=== PATIENT | female | born 1960 | race Caucasian/White ===

== ENCOUNTER 2018-08-12 17:49 | Inpatient (IN) ==
--- NOTE | 2018-08-12 20:40 | Internal Med History&Physical ---
<StephanieEneida - Last Filed: 08/13/18 01:05> Date of Encounter: 08/13/18 Internal Medicine - H&P: HPI History of present illness: Ms. Yao is a 58 year old female Internal Medicine - H&P: Meds Guaifenesin [Guaifenesin ER] 600 mg PO Q12H 03/09/16 [History] Acyclovir [Zovirax] 400 mg PO DAILY 03/16/17 [History] Bethanechol [Urecholine] 25 mg PO TID 03/16/17 [History] DiphenhydraMINE [Benadryl] 25 mg PO BID 03/16/17 [History] Estrogens, Conjugated [Premarin] 0.625 mg PO DAILY 03/16/17 [History] Ipratropium [Atrovent Inhaler] 2 puff IH QID 03/16/17 [History] Loratadine [Allergy Relief] 10 mg PO DAILY 03/16/17 [History] SUMAtriptan Succinate [Imitrex] 100 mg PO DAILY PRN 03/16/17 [History] Albuterol Sulfate [Albuterol Inhaler] 2 puff IH Q4HR PRN #1 [email or web address] 06/15/17 [Rx] Aspirin [Lo-Dose Aspirin EC] 81 mg PO DAILY 06/15/17 [History] Gabapentin [Neurontin] 800 mg PO TID 06/15/17 [History] Citalopram Hydrobromide [Citalopram HBr] 20 mg PO DAILY 03/16/18 [History] Ergocalciferol (VITAMIN D2) [Vitamin D2] 50,000 unit PO PER PKG DI 03/16/18 [ History] Mupirocin [Bactroban Oint] 1 appl TP BID #1 tube 03/16/18 [Rx] clonazePAM [Clonazepam] 1 mg PO TID 03/16/18 [History] Buprenorphine [Butrans] 15 mcg TD QWEEK 08/12/18 [History] 3 Allergy/AdvReac Type Severity Reaction Status Date / Time Penicillins Allergy Unknown See Verified 03/16/18 15:37 Comments azithromycin [From Zithromax] Allergy See Verified 03/16/18 15:37 Comments capsaicin [From Capzasin] Allergy See Verified 03/16/18 15:37 Comments codeine Allergy See Verified 03/16/18 15:37 Comments hydrocodone Allergy See Verified 03/16/18 15:37 Comments latex Allergy See Verified 03/16/18 15:37 Comments levofloxacin [From Levaquin] Allergy See Verified 03/16/18 15:37 Comments menthol [From Capzasin] Allergy See Verified 03/16/18 15:37 Comments morphine Allergy See Verified 03/16/18 15:37 Comments quetiapine Allergy See Verified 03/16/18 15:37 Comments sertraline Allergy See Verified 06/15/17 20:18 Comments sodium chloride Allergy See Verified 06/15/17 20:18 Comments venom-honey bee Allergy See Verified 06/15/17 20:18 [bee venom (honey bee)] Comments All Systems PM: A 10-system review of systems was performed and is negative for pertinent findings except as documented above in the HPI. - Constitutional Vitals: Temp Pulse Resp BP Pulse Ox 99.5 F 85 16 111/73 100 08/12/18 20:07 08/13/18 00:00 08/13/18 00:00 08/13/18 00:00 08/13/18 00:00 Internal Med - H&P Results - Labs CBC & Chem 7: 08/12/18 21:41 Labs: BMP 08/12/18 21:41 Sodium 133 L Potassium 4.4 Chloride 102 Carbon Dioxide 24 BUN 60 H Creatinine 1.18 Glucose 115 H Calcium 7.4 L Liver Function 08/12/18 Range/Units 21:41 Total Bilirubin 1.8 H (0.3-1.0) mg/dL AST 430 H (13-39) Units/L ALT 447 H (7-52) Units/L Alkaline Phosphatase 97 (34-104) Units/L Albumin 2.6 L (3.5-5.7) g/dL - Time Spent With Patient Total time spent is greater than 50% in coordination of care (as documented) at patient's floor/unit and/or counseling patient: - Attending Attestation Patient seen on 08/12/18. 58 year old woman with a history of COPD and heart failure who was transferred here after presenting to outside center in respiratory distress, found by EMS to be cyanotic around the lips, hypoxic, confused with O2 sats of 70% with no home O2 on. The patient has had increasing shortness of breath and difficulty breathing over the past couple of days. She is brought to our ICU on Bipap. She reports feeling much better. She denies fever, chest pain and chills. PE remarkable for a petite woman sitting in bed in NAD with reduced breath sounds and air entry bilaterally, normal s1/s2 and no peripheral edema. Labs remarkable for Na 133, Troponin 0.05 and elevated LFTs. D-dimer almost 17K. Will admit as acute hypoxic respiratory failure. Rule out PE with CTA given the high D-dimer. Continue Bipap, nebulizer therapy and empiric antibiotics. May benefit from diuresis as well given the high BNP. Echo should be checked. Trend LFTs. <Anthony Forte - Last Filed: 08/13/18 05:45> Date of Encounter: 08/13/18 Time of Encounter: 20:40 Internal Medicine - H&P: HPI Chief complaint: SOB Admitted From: Intrahospital Transfer ([facility]) History of present illness: Ms. Yao is a 58 year old female with a past medical history of COPD, previous right lung surgery, rheumatoid arthritis, Reynauds, lower extremity venous insufficiency, and current tobacco dependence who was transferred from [facility] ER secondary to SOB for the past 1 week. Patient was placed on BiPAP noted to be in new onset A. fib with RVR. She denies previous history of irregular heart rhythm and is on Aspirin and Toprol-XL. Patient is awake and conversant. She remains mildly confused but is able to answer questions appropriately. She reports associated fever, chills, productive cough, and chest tightness. Patient denies nausea, vomiting, diarrhea, constipation, dysuria, hematuria, leg swelling, or recent immobilization. Past Med Surg Social Fam HX - Past Medical History Medical history: arthritis, COPD, GERD, hypertension, migraine, RA, other Additional medical history: "heart problems" Psychiatric history: anxiety, depression - Past Surgical History Surgical History: cholecystectomy, herniorrhaphy, hysterectomy, other Additional surgical history: skin cancer, Rt lung surgery - Social History Smoking Status: Current every day smoker Smokeless Tobacco Status: No Alcohol use: none Drug use: none - Family History Father Hx Family Cardiac Disorders: Yes (Hypertension) Hx Family Endocrine Disorder: Yes (DM) Mother Living Status: Hx Family Cancer: Yes (Breast) Hx Family Endocrine Disorder: Yes (Thyroid) All Systems PM: A 10-system review of systems was performed and is negative for pertinent findings except as documented above in the HPI. - Constitutional Constitutional: chills, fatigue, fever(s), lethargy, no weight gain, no weight loss - EENT Eyes: no blurry vision, no change in vision Nose, mouth and throat: dry mouth, no sore throat - Cardiovascular Cardiovascular ROS IM: dyspnea, dyspnea on exertion, palpitations, no chest pain - Respiratory Respiratory: cough, dyspnea, dyspnea on exertion, wheezing, chest congestion, no excessive phlegm production, no change in phlegm color - Gastrointestinal Gastrointestinal: abdominal pain (Suprapubic), no constipation, no diarrhea, no nausea, no vomiting - Genitourinary Genitourinary: no dysuria, no urinary frequency, no urinary urgency - Musculoskeletal Musculoskeletal ROS IM: myalgias (Left upper extremity), tingling, no joint swelling, no limited range of motion, no numbness - Integumentary Integumentary IM: erythema (Ecchymosis status post venipuncture), no rash - Neurological Neurological ROS: tingling, no headache(s), no numbness, no weakness - Psychiatric Psychiatric: no anxiety, no depression - Hematologic/Lymphatic Hematologic/Lymphatic: no easy bleeding, no easy bruising - Allergic/Immunologic Allergic/Immunologic: wheezing - Constitutional Vitals: Temp Pulse Resp BP Pulse Ox 99.5 F 82 16 92/65 100 08/12/18 20:07 08/12/18 20:07 08/12/18 20:07 08/12/18 20:07 08/12/18 20:07 General appearance: Present: cachectic, A&O X 3, pleasant, answers questions appropriately Exam: Cachectic, mildly confused, no acute distress wearing BiPAP, appears older than stated age - Head Head exam: Present: atraumatic, normocephalic - Eye Eye exam: Present: EOMI, conjuntiva pink, sclera anicteric - ENT ENT exam: Present: mucous membranes dry, normal oropharynx - Neck Neck exam general surgery: Present: supple, trachea midline. Absent: lymphadenopathy - Respiratory Respiratory exam: Present: decreased breath sounds, wheezes (Expiratory). Absent: accessory muscle use, rales, respiratory distress, rhonchi Additional comments: Wearing BiPAP, previous right sided chest incision noted - Cardiovascular Cardiovascular exam: Present: RRR, +S1, +S2. Absent: diastolic murmur, gallop, rubs, systolic murmur - GI/Abdominal GI/Abdominal exam: Present: normal bowel sounds, soft, tenderness (Suprapubic), no peritoneal signs. Absent: distended - Extremities Exam Extremities exam: Present: normal capillary refill, warm, radial pulses palpable and symmetrical. Absent: calf tenderness, cyanotic, pedal edema - Back Exam Back exam: Present: normal inspection. Absent: paraspinal tenderness, tenderness - Neurological Exam Neurological exam: Present: altered, CN II-XII intact, no focal deficits. Absent: pronater drift, facial droop, speech deficit - Psychiatric Psychiatric exam: Present: normal affect, normal mood - Skin Skin exam: Present: dry, intact. Absent: normal color (Ecchymosis left AC/ bicep region, mild tenderness status post IV contrast extravasation) Internal Med - H&P Results - Labs CBC & Chem 7: 08/13/18 03:10 08/13/18 03:10 - ABG Interpretation ABG results: 08/12/19 16:45 pH 7.35, PCO2 46, PO2 87, HCO3 26, O2 sat 96% Interpretation: normal - Pulse Oximetry Interpretation Digit-Finger O2 Sat by Pulse Oximetry: 95 Actions taken: placed on BiPAP - EKG Data -: EKG Interpreted by Myself EKG shows normal: sinus rhythm (75 bpm, flipped T waves) - Assessment and plan (1) Acute on chronic respiratory failure with hypoxia and hypercapnia Current Visit: Yes Status: Acute Assessment and plan: Patient presented to [facility] emergency room in respiratory distress after found by EMS to be confused, cyanotic around the lips, hypoxic with O2 sats of 70% She denies home O2 use ABG revealed pH 7.35, PCO2 46, PO2 87, HCO3 26, O2 sat 96% Repeat ABG revealed pH 7.3, PCO2 51, PO2 80, HCO3 27, O2 sat 95% Continue BiPAP Continue bronchodilators May need to qualify for home oxygen prior to hospital discharge (2) Acute encephalopathy Current Visit: Yes Status: Acute Assessment and plan: Acute encephalopathy possibly due to hypercapnia, continue BiPAP Sitter ordered Continue close monitoring (3) Sepsis Current Visit: Yes Status: Resolved Assessment and plan: Patient met sepsis criteria with tachycardia heart rate 154, aspirin rate 24, temp 99.9F, and CAP as likely source of infection Initial lactic acid level 2.3, repeat level 1.5 Patient started on empiric antibiotics De-escalate antibiotics based on culture results Qualifiers: Sepsis type: sepsis due to unspecified organism Qualified Code(s): A41.9 - Sepsis, unspecified organism (4) Community acquired pneumonia Current Visit: Yes Status: Acute Assessment and plan: Patient presented with 99.9F, productive cough, increased oxygen requirements, and acute respiratory distress Patient has multiple drug allergies Continue empiric cefepime and vancomycin (day 1) Blood cultures collected at [facility], results pending MRSA Nasal screen pending Urine Legionella and strep pneumo antigens pending De- escalate antibiotics based on culture results Continue bronchodilators Encourage incentive spirometry Qualifiers: Laterality: unspecified laterality Qualified Code(s): J18.9 - Pneumonia, unspecified organism (5) COPD exacerbation Current Visit: Yes Status: Acute Assessment and plan: Acute exacerbation of COPD Continue antibiotics, IV steroids, and bronchodilators (6) New onset a-fib Current Visit: Yes Status: Acute Assessment and plan: Patient was placed on BiPAP noted to be in new onset A. fib RVR at [facility]. She denies previous history of irregular heart rhythm Patient is on Aspirin 81 mg daily and Toprol XL 12.5 mg daily Repeat EKG reveals normal sinus rhythm TSH level 0.469 CHADS-VASc Score 4 (female, hypertension, CHF history, and vascular disease history) Will need to discuss anticoagulation options to decrease her risk of stroke Consider cardiology evaluation for further recommendations (7) Diastolic CHF, acute on chronic Current Visit: Yes Status: Acute Assessment and plan: Echo 03/07/18 revealed LVEF 60-65%, normal LV chamber signs, mild LV diastolic dysfunction, atypical septal motion, mild tricuspid regurgitation, severe pulmonary hypertension, estimated RVSP is 65-70 mmHg Elevated BNP 2272, dyspnea on exertion, paroxysmal nocturnal dyspnea CTA chest revealed bilateral pleural effusions Resume home beta teodoro, consider adding TAMIE inhibitor once blood pressure improved Consider starting diuresis if blood pressure improves (8) Elevated d-dimer Current Visit: Yes Status: Acute Assessment and plan: Elevated d-dimer CTA revealed negative for PE Bilateral lower extremity ultrasound pending to rule out DVT (9) Elevated troponin Current Visit: Yes Status: Acute Assessment and plan: Initial troponin 0.05, repeat troponin 0.04, serotonin pending Patient initially had appointment for outpatient stress test on 07/13/18 Consider cardiology consult/ evaluation if troponin continues to rise (10) Elevated LFTs Current Visit: Yes Status: Acute Assessment and plan: Trend LFTs (11) Hypertension Current Visit: Yes Status: Chronic Assessment and plan: Continue home meds Qualifiers: Hypertension type: essential hypertension Qualified Code(s): I10 - Essential (primary) hypertension (12) Rheumatoid arthritis Current Visit: Yes Status: Chronic Assessment and plan: Outpatient monitoring Qualifiers: Rheumatoid arthritis location: unspecified site Rheumatoid factor presence : unspecified presence Qualified Code(s): M06.9 - Rheumatoid arthritis, unspecified (13) Raynaud disease Current Visit: Yes Status: Chronic Assessment and plan: Outpatient monitoring Qualifiers: Raynaud?s-associated gangrene presence: without gangrene Qualified Code(s) : I73.00 - Raynaud's syndrome without gangrene (14) Tobacco dependence Current Visit: Yes Status: Chronic Assessment and plan: Tobacco cessation discussed (15) Injection site extravasation Current Visit: Yes Status: Acute Assessment and plan: She had IV contrast extravasation into left upper extremity Hyaluronidase ordered Qualifiers: Encounter type: initial encounter Qualified Code(s): T80.818A - Extravasation of other vesicant agent, initial encounter (16) DVT prophylaxis Current Visit: Yes Status: Acute Assessment and plan: Heparin - Time Spent With Patient Total time spent is greater than 50% in coordination of care (as documented) at patient's floor/unit and/or counseling patient:
[2018-08-12] MEDS ORDERED: Ondansetron 4 MG/2 ML VIAL IVP PRN (20:42)
[2018-08-12] MEDS ORDERED: Isovue-370 500 ML INFUS..BTL IV ONE (20:42)
[2018-08-12] MEDS ORDERED: Naloxone 0.4 MG/ML INJ IVP PRN (20:42)
[2018-08-12] MEDS ORDERED: Acetaminophen 325 MG TABLET PO PRN (20:42)
[2018-08-12] MEDS ORDERED: CEFTRIAXONE IVPB SCH (21:00)
[2018-08-12] MEDS ORDERED: SODIUM CHLORIDE 0.9% IVPB SCH (21:00)
[2018-08-12] MEDS: *HR* Heparin 5,000 UNIT/ML VIAL SQ SCH (21:35)
[2018-08-12] MEDS: Cefepime HCl 1,000 MG in Water for inj. (sterile) 20 ML 10 ML IVPB SCH (21:35)
[2018-08-12 22:11] LABS: Albumin 2.6 g/dL (3.5-5.7); Albumin/Globulin Ratio 0.8 (1.1-2.2); Bilirubin,Total 1.8 mg/dL (0.3-1.0); Calcium 7.4 mg/dL (8.6-10.3); Globulin 3.2 g/dL (2.4-3.5); Magnesium 2.1 mg/dL (1.6-2.6); Phosphorous 2.9 mg/dL (2.7-4.5); Potassium 4.4 mEq/L (3.5-5.1); Total Protein 5.8 g/dL (6.4-8.9)
[2018-08-13] MEDS ORDERED: SODIUM CHLORIDE 0.9% IVPB SCH
[2018-08-13] MEDS ORDERED: VANCOMYCIN IVPB SCH
[2018-08-13] MEDS ORDERED: methylPREDNISolone 125 MG/2 ML VIAL IVP ONE (01:24)
[2018-08-13] MEDS: Ipratropium/Albuterol Neb 3 ML IH SCH ×6 (03:18→23:36)
[2018-08-13 03:25] LABS: Basophils % 0.1 %
[2018-08-13 03:27] LABS: Hematocrit 34.5 % (35.3-44.9); Hemoglobin 11.1 g/dL (11.5-15.4); Immature Granulocytes % 0.2 % (0-4); Immature Platelets 7.2 % (1.1-6.1); Lymphocytes # 0.8 K/mcL (0.6-4.6); Lymphocytes % 8.6 %; Mean Corpuscular HGB Conc 32.2 g/dL (31.6-35.5); Mean Corpuscular Hemoglobin 28.5 pg (28.0-33.3); Mean Corpuscular Volume 88.5 fL (83.0-100.0); Mean Platelet Volume 10.4 fL (9.4-12.4); Monocytes # 1.1 K/mcL (0.0-1.3); Monocytes % 11.7 %; Neutrophils # 7.2 K/mcL (1.6-8.9); Nucleated Red Blood Cells 0.4 /100 WBC (0); Platelet Count 105 K/mcL (140-400); Red Cell Distribution Width 16.4 % (11.5-14.5); Segmented Neutrophils % 79.4 %
[2018-08-13 03:32] LABS: INR 2.3; Prothrombin Time 25.8 Seconds (9.4-12.1)
[2018-08-13 03:39] LABS: Alanine Aminotransferase 383 Units/L (7-52); Albumin 2.5 g/dL (3.5-5.7); Albumin/Globulin Ratio 0.9 (1.1-2.2); Alkaline Phosphatase 84 Units/L (34-104); Aspartate Amino Transferase 330 Units/L (13-39); BUN/Creatinine Ratio 56 (6-26); Bilirubin,Total 1.8 mg/dL (0.3-1.0); Blood Urea Nitrogen 48 mg/dL (8-23); Calcium 7.3 mg/dL (8.6-10.3); Carbon Dioxide 26 mEq/L (23-29); Chloride 100 mEq/L (98-107); Globulin 2.9 g/dL (2.4-3.5); Glucose 122 mg/dL (70-105); Osmolality,Calculated 284 (280-300); Potassium 3.7 mEq/L (3.5-5.1); Sodium 130 mEq/L (136-145); Total Protein 5.4 g/dL (6.4-8.9); eGFR For Non-African Americans > 60 (> 60)
[2018-08-13 04:28] LABS: Bilirubin,Urine Negative (Negative); Blood,Urine Negative (Negative); Clarity,Urine Clear (Clear); Color,Urine Yellow (Yellow); Glucose,Urine (UA) Normal (Normal); Ketones,Urine Negative (Negative); Leukocyte Esterase,Urine Negative (Negative); Nitrite,Urine Negative (Negative); PH,Urine 5.5 pH Units (5.0-8.0); Protein,Urine Negative (Neg-Trace); Specific Gravity,Urine > 1.030 (1.010-1.025); Urobilinogen,Urine Normal (Normal)
[2018-08-13] MEDS: clonazePAM 1 MG TABLET PO SCH ×4 (04:57→20:48)
[2018-08-13 05:01] LABS: ABG Base Excess 1 mEq/L (-2 to 3); ABG HCO3 27 mEq/L (21-27); ABG Oxygen Saturation 95 % (95-98); ABG PCO2 51 mmHg (35-45); ABG PH 7.33 pH Units (7.32-7.45); ABG PO2 80 mmHg (85-104); ABG TCO2 29 mEq/L (20-26); Blood Gas Modality NIV; Blood Gas Respiration Rate 13; Blood Gas VT 848 cc
[2018-08-13] MEDS: Cefepime HCl 1,000 MG in Water for inj. (sterile) 20 ML 10 ML IVPB SCH ×2 (05:07→17:50)
[2018-08-13] MEDS: *HR* Heparin 5,000 UNIT/ML VIAL SQ SCH ×3 (05:07→20:40)
[2018-08-13] MEDS ORDERED: Haloperidol Lactate 5 MG/ML VIAL IVP ONE (06:18)
[2018-08-13] MEDS ORDERED: MethylPREDNISolone 40 MG/ML VIAL IVP SCH (08:00)
--- NOTE | 2018-08-13 08:41 | Internal Med Progress Note ---
Hospitalist Progress Note - Encounter Date of Encounter: 08/13/18 Time of Encounter: 08:41 - Subjective Interval History: Ms Yao is currently admitted for acute on chronic hypoxic resp failure. She remains moderate to high risk due to potential for worsening clinical and respiratory status. Ms Yao is currently on bipap. She is arousable and says she wants to leave. She has been taking her bipap off and when she does she becomes more somnolent and retains CO2. Denies CP. No GI issues. Her liver function remains elevated - transaminitis and INR. - Exam Vitals: Temp Pulse Resp BP Pulse Ox 97.6 F 69 13 86/55 98 08/13/18 07:35 08/13/18 07:35 08/13/18 08:23 08/13/18 08:23 08/13/18 08:23 Exam: General: Alert. On bipap. Seems comfortable. Skin: Normal color, no rash, no lesions. Some ecchymoses noted. H: Normocephalic. EENT: EOMI, pupils reactive. Mucus membranes dry. No lesion seen though bipap mask in place. Cardiovascular: Normal S1 & S2, no rubs, murmurs or gallops. No JVD. Pulse regular and not tachy. Lungs: Diminished breath sounds with some end exp wheeze. No rales or rhonchi. Abdomen: Soft, non-tender, no rigidity. Normal bowel sounds. Extremities: No deformity, no edema or tenderness, no joint swelling or clubbing. Neurological: Alert. Moves all extremities equally. Pulses: Carotid and radial pulses normal +2. Rest of the physical exam is non contributory - Assessment and Plan (1) Acute on chronic respiratory failure with hypoxia and hypercapnia Current Visit: Yes Status: Acute Assessment and Plan: Pt presented to ED in acute hypoxic resp failure with saturation in 70s. Has become acidotic and hypercapnic. Continue bipap at this time. NPO. Oxygen supplementation. Will transfer out of ICU to . Continue aerosols, steroids, abx. (2) COPD exacerbation Current Visit: Yes Status: Acute Assessment and Plan: Currently in acute exacerbation. Continue steroids, oxygen, abx (3) Diastolic CHF, acute on chronic Current Visit: Yes Status: Acute Assessment and Plan: Has hx of diastolic heart failure. Holding on diuresis for now due to blood pressure. Holding fluids at this time. (4) Acute metabolic encephalopathy Current Visit: Yes Status: Acute Assessment and Plan: Appears to be related to illness, liver function, respiratory failure. Has sitter as she has been pulling off her bipap. (5) Community acquired pneumonia Current Visit: Yes Status: Acute Assessment and Plan: CTA showed bibasilar infiltrates. Currently on cefipime and vancomycin. MRSA swab negative - will d/c vanc. Continue cefipime. Blood cx pending. (6) Transaminitis Current Visit: Yes Status: Acute Assessment and Plan: Pt has elevated transaminases and INR. Most likely due to hypotension prior to admission. Slightly better today. Will give vit K for elevated INR. Recheck tomorrow. (7) New onset a-fib Current Visit: Yes Status: Acute Assessment and Plan: Had episode of parox a fib in [place]. Currently in sinus rhythm. CHADS-VASc Score 4 (female, hypertension, CHF history, and vascular disease history) Will need to discuss anticoagulation options to decrease her risk of stroke Review any prior echo results. (8) Hypertension Current Visit: Yes Status: Chronic Assessment and Plan: Blood pressure has been on low side today. Holding any meds and diuresis for now. (9) DVT prophylaxis Current Visit: Yes Status: Acute Assessment and Plan: Heparin subqu (10) Elevated troponin Current Visit: Yes Status: Acute Assessment and Plan: Initial troponin low but now 0.14 Recheck another one later today. (11) Elevated d-dimer Current Visit: Yes Status: Acute Assessment and Plan: Elevated d-dimer CTA revealed negative for PE Pt refuses venous study (12) Injection site extravasation Current Visit: Yes Status: Acute Assessment and Plan: She had IV contrast extravasation into left upper extremity Hyaluronidase ordered Stable at this time. (13) Sepsis Current Visit: Yes Status: Resolved Assessment and Plan: Heartrate has improved. Sepsis appears to have resolved. (14) Raynaud disease Current Visit: Yes Status: Chronic Assessment and Plan: Outpatient monitoring (15) Rheumatoid arthritis Current Visit: Yes Status: Chronic (16) Tobacco abuse Current Visit: Yes Status: Chronic Assessment and Plan: Cessation counselling - Time Spent with Patient Total time spent is greater than 50% in coordination of care (as documented) at patient's floor/unit and/or counseling patient: Internal Medicine: Result - Labs CBC & Chem 7: 08/13/18 03:10 08/13/18 03:10 Labs: Short CBC 08/13/18 Range/Units 03:10 WBC 9.1 (4.3-11.1) K/mcL Hgb 11.1 L (11.5-15.4) g/dL Hct 34.5 L (35.3-44.9) % Plt Count 105 L (140-400) K/mcL Neutrophils # 7.2 (1.6-8.9) K/mcL BMP 08/12/18 08/13/18 21:41 03:10 Sodium 133 L 130 L Potassium 4.4 3.7 Chloride 102 100 Carbon Dioxide 24 26 BUN 60 H 48 H Creatinine 1.18 0.85 Glucose 115 H 122 H Calcium 7.4 L 7.3 L Cardiac Enzymes 08/13/18 Range/Units 03:10 Troponin I 0.04 H* (< 0.04) ng/mL Liver Function 08/12/18 08/13/18 Range/Units 21:41 03:10 Total Bilirubin 1.8 H 1.8 H (0.3-1.0) mg/dL AST 430 H 330 H (13-39) Units/L ALT 447 H 383 H (7-52) Units/L Alkaline Phosphatase 97 84 (34-104) Units/L Albumin 2.6 L 2.5 L (3.5-5.7) g/dL Urine 08/13/18 Range/Units 01:21 Urine Color Yellow (Yellow) Urine Clarity Clear (Clear) Urine pH 5.5 (5.0-8.0) pH Units Ur Specific [place] > 1.030 H (1.010-1.025) Urine Protein Negative (Neg-Trace) mg/dL Urine Glucose (UA) Normal (Normal) mg/dL - ABG Interpretation ABG results: ABG ABG pH 7.33 pH Units (7.32-7.45) 08/13/18 04:58 ABG pCO2 51 mmHg (35-45) H 08/13/18 04:58 ABG pO2 80 mmHg (85-104) L 08/13/18 04:58 ABG O2 Saturation 95 % (95-98) 08/13/18 04:58 PT/INR, D-dimer PT 25.8 Seconds (9.4-12.1) H 08/13/18 03:10 - Impressions Impressions Chest CTA 08/12/18 20:42 IMPRESSION: No PE detected. Bibasilar pulmonary infiltrates and trace bilateral pleural effusions. Pulmonary emphysema. Infiltrated contrast in the left upper extremity. D/ / Be Roland MD / Be Roland MD Interpreting Provider: Be Roland MD Consult Discharge Plan - Plan Referrals: Les Merchant DO [Primary Care Provider] - (5) Community acquired pneumonia Qualifiers: Laterality: unspecified laterality Qualified Code(s): J18.9 - Pneumonia, unspecified organism (8) Hypertension Qualifiers: Hypertension type: essential hypertension Qualified Code(s): I10 - Essential (primary) hypertension (12) Injection site extravasation Qualifiers: Encounter type: subsequent encounter Qualified Code(s): T80.818D - Extravasation of other vesicant agent, subsequent encounter (13) Sepsis Qualifiers: Sepsis type: sepsis due to unspecified organism Qualified Code(s): A41.9 - Sepsis, unspecified organism (14) Raynaud disease Qualifiers: Raynaud?s-associated gangrene presence: without gangrene Qualified Code(s): I73.00 - Raynaud's syndrome without gangrene (15) Rheumatoid arthritis Qualifiers: Rheumatoid arthritis location: unspecified site Rheumatoid factor presence: unspecified presence Qualified Code(s): M06.9 - Rheumatoid arthritis, unspecified
[2018-08-13] MEDS ORDERED: Ringers Solution, Lactated 1,000 ML IVC SCH ×2 (08:45→09:46)
[2018-08-13] MEDS ORDERED: Aspirin Enteric Coated 81 MG Tablet PO SCH (09:00)
[2018-08-13] MEDS ORDERED: Pantoprazole 40 MG VIAL IVP SCH (09:00)
[2018-08-13] MEDS ORDERED: Metoprolol XL (24 HR) Succ 25 MG TAB.ER.24H PO SCH (09:00)
[2018-08-13] MEDS ORDERED: Naloxone 0.4 MG/ML INJ IVP PRN (09:46)
[2018-08-13] MEDS ORDERED: Ondansetron 4 MG/2 ML VIAL IVP PRN (09:46)
[2018-08-13] MEDS ORDERED: Acetaminophen 325 MG TABLET PO PRN (09:46)
[2018-08-13] MEDS ORDERED: BUPRENORPHINE 15 MCG TP SCH (17:00)
[2018-08-13] MEDS: MethylPREDNISolone 40 MG/ML VIAL IVP SCH (17:50)
[2018-08-13 17:53] LABS: VBG HCO3 30 mEq/L (21-27); VBG PCO2 64 mmHg (41-51); VBG PH 7.28 pH Units (7.32-7.42); VBG PO2 58 mmHg (25-50)
[2018-08-13] MEDS: Gabapentin 400 MG CAPSULE PO SCH (20:48)
[2018-08-14] MEDS: MethylPREDNISolone 40 MG/ML VIAL IVP SCH ×3 (00:47→23:58)
[2018-08-14] MEDS: Ipratropium/Albuterol Neb 3 ML IH SCH ×6 (03:44→23:01)
[2018-08-14 03:50] LABS: Red Cell Distribution Width 16.3 % (11.5-14.5)
[2018-08-14 03:52] LABS: Hematocrit 35.8 % (35.3-44.9); Hemoglobin 11.4 g/dL (11.5-15.4); Mean Corpuscular HGB Conc 31.8 g/dL (31.6-35.5); Mean Corpuscular Hemoglobin 28.1 pg (28.0-33.3); Mean Corpuscular Volume 88.2 fL (83.0-100.0); Red Blood Count 4.06 M/mcL (3.82-4.97)
[2018-08-14 04:09] LABS: Alanine Aminotransferase 309 Units/L (7-52); Albumin 2.4 g/dL (3.5-5.7); Albumin/Globulin Ratio 0.8 (1.1-2.2); Alkaline Phosphatase 83 Units/L (34-104); Aspartate Amino Transferase 207 Units/L (13-39); BUN/Creatinine Ratio 42 (6-26); Bilirubin,Total 1.2 mg/dL (0.3-1.0); Blood Urea Nitrogen 25 mg/dL (8-23); Calcium 8.1 mg/dL (8.6-10.3); Carbon Dioxide 27 mEq/L (23-29); Chloride 100 mEq/L (98-107); Globulin 2.9 g/dL (2.4-3.5); Glucose 125 mg/dL (70-105); Osmolality,Calculated 280 (280-300); Phosphorous 2.1 mg/dL (2.7-4.5); Potassium 3.8 mEq/L (3.5-5.1); Sodium 132 mEq/L (136-145); Total Protein 5.3 g/dL (6.4-8.9); eGFR For Non-African Americans > 60 (> 60)
[2018-08-14] MEDS: *HR* Heparin 5,000 UNIT/ML VIAL SQ SCH (04:23)
[2018-08-14] MEDS: Cefepime HCl 1,000 MG in Water for inj. (sterile) 20 ML 10 ML IVPB SCH ×3 (04:32→18:10)
[2018-08-14 08:29] LABS: ABG Base Excess 3 mEq/L (-2 to 3); ABG HCO3 29 mEq/L (21-27); ABG Oxygen Saturation 96 % (95-98); ABG PCO2 49 mmHg (35-45); ABG PH 7.38 pH Units (7.32-7.45); ABG PO2 86 mmHg (85-104); ABG TCO2 30 mEq/L (20-26); Blood Gas PEEP 6 cm H2O; Blood Gas Pressure Support 12 cm H2O; Blood Gas Respiration Rate 12
[2018-08-14] MEDS ORDERED: Aminoglycoside Consult 1 EACH MC ONE (08:30)
--- NOTE | 2018-08-14 08:39 | Internal Med Progress Note ---
Hospitalist Progress Note - Encounter Date of Encounter: 08/14/18 Time of Encounter: 08:36 - Subjective Interval History: Ms Yao is currently admitted for acute on chronic hypoxic resp failure. She remains moderate to high risk due to potential for worsening clinical and respiratory status. Ms Yao remains on bipap. She seems to be more alert and oriented this AM. She was taken off bipap and went into a fib with RVR. When put back on bipap she returned to R as she is now. Denies CP. No abd pain. No fever or chills. No GI issues. - Exam Vitals: Temp Pulse Resp BP Pulse Ox 97.2 F L 63 17 102/66 100 08/14/18 07:32 08/14/18 07:32 08/14/18 07:33 08/14/18 07:32 08/14/18 07:33 Exam: General: Alert. Appears more oriented at this time. Comfortable in bed. Skin: Normal color, no rash, no lesions. H: Normocephalic. EENT: EOMI, pupils equal. Mucus membranes dry. Cardiovascular: Normal S1 & S2, no rubs, murmurs or gallops. No JVD. Pulse regular. Not tachycardic. Lungs: Diminished breath sounds. No wheeze or rales anteriorly or laterally. Abdomen: Soft, non-tender, no rigidity. Normal bowel sounds. Extremities: No deformity, no edema or tenderness, no joint swelling or clubbing. Neurological: Moves all extremities. Pulses: Carotid and radial pulses normal +2. Rest of the physical exam is non contributory - Assessment and Plan (1) Acute on chronic respiratory failure with hypoxia and hypercapnia Current Visit: Yes Status: Acute Assessment and Plan: Pt presented to ED in acute hypoxic resp failure with saturation in 70s. ABG is better this AM. Will try her off bipap at this time (watching heart rate ). (2) COPD exacerbation Current Visit: Yes Status: Acute Assessment and Plan: Currently in acute exacerbation. Will begin taper of steroids to q12h today. Continue oxygen and abx at this time. (3) Diastolic CHF, acute on chronic Current Visit: Yes Status: Acute Assessment and Plan: Has hx of diastolic heart failure. Diuretic on hold due to blood pressure. Will recheck CXR tomorrow. (4) Thrombocytopenia Current Visit: Yes Status: Acute Assessment and Plan: Doubt HIT but antibody ordered and subqu heparin stopped. (5) Acute metabolic encephalopathy Current Visit: Yes Status: Acute Assessment and Plan: Appears to be related to illness, liver function, respiratory failure. Seems to be doing better today. Continue supportive care. (6) Community acquired pneumonia Current Visit: Yes Status: Acute Assessment and Plan: CTA showed bibasilar infiltrates. Currently on cefipime Cultures are negative at this time. (7) Transaminitis Current Visit: Yes Status: Acute Assessment and Plan: Pt has elevated transaminases and INR. Most likely due to hypotension prior to admission. Continues to slowly improve. (8) Paroxysmal atrial fibrillation Current Visit: Yes Status: Chronic Assessment and Plan: Currently in sinus rhythm. Had rapid a fib when off bipap last night. Monitor for return of tachycardia. Will need to address issue of anticoagulation prior to discharge. (9) Hypertension Current Visit: Yes Status: Chronic Assessment and Plan: Blood pressure has been on low side today. Holding any meds and diuresis for now. (10) Injection site extravasation Current Visit: Yes Status: Acute Assessment and Plan: She had IV contrast extravasation into left upper extremity Hyaluronidase ordered Stable at this time. (11) Raynaud disease Current Visit: Yes Status: Chronic Assessment and Plan: Outpatient monitoring (12) Rheumatoid arthritis Current Visit: Yes Status: Chronic Assessment and Plan: Outpatient monitoring (13) Tobacco abuse Current Visit: Yes Status: Chronic Assessment and Plan: Cessation counselling (14) DVT prophylaxis Current Visit: Yes Status: Acute Assessment and Plan: Now getting SCDs as her platelets have decreased. - Time Spent with Patient Total time spent is greater than 50% in coordination of care (as documented) at patient's floor/unit and/or counseling patient: Internal Medicine: Result - Labs CBC & Chem 7: 08/14/18 03:26 08/14/18 03:26 Labs: Short CBC 08/14/18 Range/Units 03:26 WBC 5.8 (4.3-11.1) K/mcL Hgb 11.4 L (11.5-15.4) g/dL Hct 35.8 (35.3-44.9) % Plt Count 87 L (140-400) K/mcL BMP 08/14/18 03:26 Sodium 132 L Potassium 3.8 Chloride 100 Carbon Dioxide 27 BUN 25 H Creatinine 0.60 Glucose 125 H Calcium 8.1 L Cardiac Enzymes 08/13/18 08/13/18 Range/Units 09:53 16:00 Troponin I 0.16 H* 0.03 (< 0.04) ng/mL Liver Function 08/14/18 Range/Units 03:26 Total Bilirubin 1.2 H (0.3-1.0) mg/dL AST 207 H (13-39) Units/L ALT 309 H (7-52) Units/L Alkaline Phosphatase 83 (34-104) Units/L Albumin 2.4 L (3.5-5.7) g/dL - ABG Interpretation ABG results: ABG ABG pH 7.38 pH Units (7.32-7.45) 08/14/18 08:26 ABG pCO2 49 mmHg (35-45) H 08/14/18 08:26 ABG pO2 86 mmHg (85-104) 08/14/18 08:26 ABG O2 Saturation 96 % (95-98) 08/14/18 08:26 PT/INR, D-dimer PT 25.8 Seconds (9.4-12.1) H 08/13/18 03:10 Consult Discharge Plan - Plan Referrals: Les Merchant DO [Primary Care Provider] - (6) Community acquired pneumonia Qualifiers: Laterality: unspecified laterality Qualified Code(s): J18.9 - Pneumonia, unspecified organism (9) Hypertension Qualifiers: Hypertension type: essential hypertension Qualified Code(s): I10 - Essential (primary) hypertension (10) Injection site extravasation Qualifiers: Encounter type: subsequent encounter Qualified Code(s): T80.818D - Extravasation of other vesicant agent, subsequent encounter (11) Raynaud disease Qualifiers: Raynaud?s-associated gangrene presence: without gangrene Qualified Code(s): I73.00 - Raynaud's syndrome without gangrene (12) Rheumatoid arthritis Qualifiers: Rheumatoid arthritis location: unspecified site Rheumatoid factor presence: unspecified presence Qualified Code(s): M06.9 - Rheumatoid arthritis, unspecified
[2018-08-14] MEDS: Aspirin Enteric Coated 81 MG Tablet PO SCH (08:46)
[2018-08-14] MEDS: clonazePAM 1 MG TABLET PO SCH ×3 (08:47→20:47)
[2018-08-14] MEDS: Gabapentin 400 MG CAPSULE PO SCH ×3 (08:47→20:47)
[2018-08-14] MEDS: Metoprolol XL (24 HR) Succ 25 MG TAB.ER.24H PO SCH (08:47)
[2018-08-14] MEDS ORDERED: Pantoprazole 40 MG VIAL IVP SCH (09:00)
[2018-08-14] MEDS ORDERED: METOPROLOL SUCCINATE 12.5 MG PO SCH (09:00)
[2018-08-14] MEDS ORDERED: *HR* Phytonadione 5 MG TABLET PO ONE (14:07)
[2018-08-15] MEDS: Ipratropium/Albuterol Neb 3 ML IH SCH ×5 (04:12→20:52)
[2018-08-15 05:14] LABS: Hematocrit 35.6 % (35.3-44.9); Hemoglobin 11.1 g/dL (11.5-15.4); Mean Corpuscular HGB Conc 31.2 g/dL (31.6-35.5); Mean Corpuscular Hemoglobin 27.5 pg (28.0-33.3); Mean Corpuscular Volume 88.1 fL (83.0-100.0); Red Blood Count 4.04 M/mcL (3.82-4.97); Red Cell Distribution Width 16.6 % (11.5-14.5)
[2018-08-15 05:35] LABS: BUN/Creatinine Ratio 41 (6-26); Blood Urea Nitrogen 25 mg/dL (8-23); Carbon Dioxide 28 mEq/L (23-29); Chloride 101 mEq/L (98-107); Glucose 121 mg/dL (70-105); Osmolality,Calculated 284 (280-300); Potassium 4.2 mEq/L (3.5-5.1); Sodium 134 mEq/L (136-145); eGFR For Non-African Americans > 60 (> 60)
[2018-08-15] MEDS: Gabapentin 400 MG CAPSULE PO SCH ×3 (09:16→21:24)
[2018-08-15] MEDS: clonazePAM 1 MG TABLET PO SCH ×3 (09:17→21:24)
[2018-08-15] MEDS: Aspirin Enteric Coated 81 MG Tablet PO SCH (09:17)
[2018-08-15] MEDS: Metoprolol XL (24 HR) Succ 25 MG TAB.ER.24H PO SCH (09:17)
--- NOTE | 2018-08-15 13:06 | Internal Med Progress Note ---
<Iggy John - Last Filed: 08/15/18 14:42> Hospitalist Progress Note - Encounter Date of Encounter: 08/15/18 Time of Encounter: 09:30 - Subjective Interval History: Ms. Yao is admitted for acute on chronic hypoxic resp failure. She has been tolerating nasal cannula at 2L and saturating well (not on O2 at home). She has done so without irregularity to her heart rate today. She denies fever, shortness of breath, or abdominal pain. - Exam Vitals: Temp Pulse Resp BP Pulse Ox 97.3 F L 82 16 88/55 98 08/15/18 11:19 08/15/18 11:19 08/15/18 11:38 08/15/18 11:19 08/15/18 11:38 Exam: General: Alert, in no acute distress, pleasant. Comfortable in bed. Off of bipap , saturating well. Skin: Normal color, no rash, no lesions. H: Normocephalic. EENT: EOMI, pupils equal. Mucus membranes dry. Cardiovascular: Normal S1 & S2, no rubs, murmurs or gallops. No JVD. Pulse regular. Not tachycardic. Lungs: Diminished breath sounds. No wheeze or rales anteriorly or laterally. Abdomen: Soft, non-tender, no rigidity. Normal bowel sounds. Extremities: No deformity, no edema or tenderness, no joint swelling or clubbing. Neurological: Moves all extremities, no facial asymmetry or slurring of speech. Pulses: pedal and radial pulses normal +2. - Assessment and Plan (1) Acute on chronic respiratory failure with hypoxia and hypercapnia Current Visit: Yes Status: Acute Assessment and Plan: Tolerating nasal cannula today, no tachycardia, saturating well Continue monitoring off of bipap (2) COPD exacerbation Current Visit: Yes Status: Acute Assessment and Plan: Acute exacerbation, off of bipap Currently day 2 of 40mg steroid q12h Will transition to 40mg oral tomorrow with plan for discharge and taper at home. Continue o2 titration, steroids, aerosols, switched to PO Levaquin (3) Community acquired pneumonia Current Visit: Yes Status: Acute Assessment and Plan: bibasilar infiltrates on CTA, transitioned to Levaquin from Cefipime, will continue for 5 days Cultures negative (4) Diastolic CHF, acute on chronic Current Visit: Yes Status: Acute Assessment and Plan: CXR pending D/c bb and trial cardizem po short acting q8h tomorrow 08/16 in setting of bp's in 80-90s systolic (5) Transaminitis Current Visit: Yes Status: Acute Assessment and Plan: has been downtrending, repeat in am labs (6) Thrombocytopenia Current Visit: Yes Status: Acute Assessment and Plan: HIT ab pending (7) Paroxysmal atrial fibrillation Current Visit: Yes Status: Chronic Assessment and Plan: D/c bb and trial cardizem po short acting q8h tomorrow 08/16 in setting of bp's in 80-90s systolic (8) Raynaud disease Current Visit: Yes Status: Chronic Assessment and Plan: chronic condition, outpatient monitoring (9) Rheumatoid arthritis Current Visit: Yes Status: Chronic Assessment and Plan: chronic condition, outpatient monitoring (10) Hypertension Current Visit: Yes Status: Chronic Assessment and Plan: chronic condition, currently hypotensive; MDM as above under Paroxy afib (11) Tobacco dependence Current Visit: Yes Status: Chronic Assessment and Plan: cessation discussed (12) DVT prophylaxis Current Visit: Yes Status: Acute Assessment and Plan: heparin discontinued, on scds, pf4 ab pending - Time Spent with Patient Total time spent is greater than 50% in coordination of care (as documented) at patient's floor/unit and/or counseling patient: Greater than 35 minutes Plan of Care Discussed with: patient Internal Medicine: Result - Labs CBC & Chem 7: 08/15/18 04:46 08/15/18 04:46 Labs: Short CBC 08/15/18 Range/Units 04:46 WBC 8.7 (4.3-11.1) K/mcL Hgb 11.1 L (11.5-15.4) g/dL Hct 35.6 (35.3-44.9) % Plt Count 89 L (140-400) K/mcL BMP 08/15/18 04:46 Sodium 134 L Potassium 4.2 Chloride 101 Carbon Dioxide 28 BUN 25 H Creatinine 0.61 Glucose 121 H Calcium 9.0 - ABG Interpretation ABG results: ABG ABG pH 7.38 pH Units (7.32-7.45) 08/14/18 08:26 ABG pCO2 49 mmHg (35-45) H 08/14/18 08:26 ABG pO2 86 mmHg (85-104) 08/14/18 08:26 ABG O2 Saturation 96 % (95-98) 08/14/18 08:26 PT/INR, D-dimer PT 25.8 Seconds (9.4-12.1) H 08/13/18 03:10 Consult Discharge Plan - Plan Referrals: Les Merchant DO [Primary Care Provider] - <Vitaly Thorpe - Last Filed: 08/15/18 16:47> Hospitalist Progress Note - Encounter Date of Encounter: 08/15/18 - Exam Vitals: Temp Pulse Resp BP Pulse Ox 97.3 F L 68 16 100/66 98 08/15/18 15:41 08/15/18 15:41 08/15/18 16:22 08/15/18 15:41 08/15/18 16:22 - Assessment and Plan (1) Acute on chronic respiratory failure with hypoxia and hypercapnia Current Visit: Yes Status: Acute (2) COPD exacerbation Current Visit: Yes Status: Acute (3) Paroxysmal atrial fibrillation Current Visit: Yes Status: Chronic (4) Diastolic CHF, acute on chronic Current Visit: Yes Status: Acute (5) Thrombocytopenia Current Visit: Yes Status: Acute (6) Acute metabolic encephalopathy Current Visit: Yes Status: Resolved (7) Community acquired pneumonia Current Visit: Yes Status: Acute (8) Transaminitis Current Visit: Yes Status: Acute (9) Hypertension Current Visit: Yes Status: Chronic (10) Injection site extravasation Current Visit: Yes Status: Resolved (11) Raynaud disease Current Visit: Yes Status: Chronic (12) Rheumatoid arthritis Current Visit: Yes Status: Chronic (13) Tobacco abuse Current Visit: Yes Status: Chronic (14) DVT prophylaxis Current Visit: Yes Status: Acute - Time Spent with Patient Total time spent is greater than 50% in coordination of care (as documented) at patient's floor/unit and/or counseling patient: Internal Medicine: Result - Labs CBC & Chem 7: 08/15/18 04:46 08/15/18 04:46 Labs: Short CBC 08/15/18 Range/Units 04:46 WBC 8.7 (4.3-11.1) K/mcL Hgb 11.1 L (11.5-15.4) g/dL Hct 35.6 (35.3-44.9) % Plt Count 89 L (140-400) K/mcL BMP 08/15/18 04:46 Sodium 134 L Potassium 4.2 Chloride 101 Carbon Dioxide 28 BUN 25 H Creatinine 0.61 Glucose 121 H Calcium 9.0 - ABG Interpretation ABG results: ABG ABG pH 7.38 pH Units (7.32-7.45) 08/14/18 08:26 ABG pCO2 49 mmHg (35-45) H 08/14/18 08:26 ABG pO2 86 mmHg (85-104) 08/14/18 08:26 ABG O2 Saturation 96 % (95-98) 08/14/18 08:26 PT/INR, D-dimer PT 25.8 Seconds (9.4-12.1) H 08/13/18 03:10 - Impressions Impressions Chest X-Ray 08/15/18 09:52 IMPRESSION: Bibasilar atelectasis or infiltrate and possible trace bilateral pleural effusions. Follow-up to resolution is recommended. D/ / Prudence Hernandez MD / Prudence Hernandez MD Interpreting Provider: Prudence Hernandez MD - Attending Attestation I examined this patient and my medical decision-making was reviewed with the Resident Physician on 08/15/18. I agree with the documented findings, disposition and treatment plan as described except to the extent set forth below. Ms Yao is currently admitted for resp failure and COPD. She remains moderate to high risk due to potential for worsening clinical status. Ms Yao is off bipap. She has had no further a fib. No fever or chills. Breathing slowly improving. No GI issues. Exam alert Comfortable in bed Mucus membranes dry Heart reg at this time and not tachy Decreased breath sounds - no wheeze abd soft No edema I/P 1. Resp failure 2. COPD 3. Parox a fib Further diagnoses and plan as above. D/C planning. <Iggy John - Last Filed: 08/15/18 14:42> (3) Community acquired pneumonia Qualifiers: Laterality: unspecified laterality Qualified Code(s): J18.9 - Pneumonia, unspecified organism (8) Raynaud disease Qualifiers: Raynaud?s-associated gangrene presence: without gangrene Qualified Code(s): I73.00 - Raynaud's syndrome without gangrene (9) Rheumatoid arthritis Qualifiers: Rheumatoid arthritis location: unspecified site Rheumatoid factor presence: unspecified presence Qualified Code(s): M06.9 - Rheumatoid arthritis, unspecified (10) Hypertension Qualifiers: Hypertension type: essential hypertension Qualified Code(s): I10 - Essential (primary) hypertension <Vitaly Thorpe - Last Filed: 08/15/18 16:47> (7) Community acquired pneumonia Qualifiers: Laterality: unspecified laterality Qualified Code(s): J18.9 - Pneumonia, unspecified organism (9) Hypertension Qualifiers: Hypertension type: essential hypertension Qualified Code(s): I10 - Essential (primary) hypertension (10) Injection site extravasation Qualifiers: Encounter type: subsequent encounter Qualified Code(s): T80.818D - Extravasation of other vesicant agent, subsequent encounter (11) Raynaud disease Qualifiers: Raynaud?s-associated gangrene presence: without gangrene Qualified Code(s): I73.00 - Raynaud's syndrome without gangrene (12) Rheumatoid arthritis Qualifiers: Rheumatoid arthritis location: unspecified site Rheumatoid factor presence: unspecified presence Qualified Code(s): M06.9 - Rheumatoid arthritis, unspecified
[2018-08-15] MEDS: MethylPREDNISolone 40 MG/ML VIAL IVP SCH (13:48)
[2018-08-15] MEDS: levoFLOXacin 500 MG TABLET PO SCH (13:48)
[2018-08-16] MEDS: Ipratropium/Albuterol Neb 3 ML IH SCH ×7 (00:13→23:47)
[2018-08-16] MEDS: MethylPREDNISolone 40 MG/ML VIAL IVP SCH (00:28)
[2018-08-16] MEDS ORDERED: SUMAtriptan succinate 50 MG TABLET PO PRN (01:28)
[2018-08-16 05:42] LABS: Albumin 2.5 g/dL (3.5-5.7); Albumin/Globulin Ratio 0.9 (1.1-2.2); Bilirubin,Direct 0.3 mg/dL (0.0-0.2); Bilirubin,Indirect 0.5 mg/dL (0.0-1.2); Bilirubin,Total 0.8 mg/dL (0.3-1.0); Globulin 2.9 g/dL (2.4-3.5); Total Protein 5.4 g/dL (6.4-8.9)
--- NOTE | 2018-08-16 06:42 | Electrocardiograph Report ---
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
[2018-08-16] MEDS: Gabapentin 400 MG CAPSULE PO SCH ×3 (08:59→23:14)
[2018-08-16] MEDS: Aspirin Enteric Coated 81 MG Tablet PO SCH (08:59)
[2018-08-16] MEDS: clonazePAM 1 MG TABLET PO SCH ×3 (08:59→23:14)
[2018-08-16] MEDS: levoFLOXacin 500 MG TABLET PO SCH (08:59)
[2018-08-16 09:50] LABS: BUN/Creatinine Ratio 36 (6-26); Blood Urea Nitrogen 24 mg/dL (8-23); Calcium 9.2 mg/dL (8.6-10.3); Carbon Dioxide 27 mEq/L (23-29); Chloride 97 mEq/L (98-107); Glucose 191 mg/dL (70-105); Osmolality,Calculated 273 (280-300); Potassium 4.9 mEq/L (3.5-5.1); Sodium 127 mEq/L (136-145); eGFR For Non-African Americans > 60 (> 60)
[2018-08-16] MEDS ORDERED: 0.9 % Sodium Chloride 1,000 ML IVC SCH (11:15)
--- NOTE | 2018-08-16 17:01 | Internal Med Progress Note ---
<Iggy John - Last Filed: 08/16/18 17:17> Hospitalist Progress Note - Encounter Date of Encounter: 08/16/18 Time of Encounter: 09:00 - Subjective Interval History: Ms. Yao is admitted for acute on chronic hypoxic resp failure. She has been tolerating nasal cannula at 2L and saturating well (not on O2 at home). She denies chest pain, palpitations, fever, abd pain, n/v/d. She was alert at time of encounter, report of somnolence from PT/OT note (they plan to attempt again tomorrow). Plan for Xarelto initiation prior-auth today with social science professor. - Exam Vitals: Temp Pulse Resp BP Pulse Ox 97.7 F 68 16 84/56 97 08/16/18 15:44 08/16/18 15:44 08/16/18 15:44 08/16/18 15:44 08/16/18 15:44 Exam: General: Alert, in no acute distress, pleasant. Comfortable in bed. Off of bipap , saturating well. Skin: Normal color, no rash, no lesions. H: Normocephalic. EENT: EOMI Mucus membranes moist, chronic/known asymmetry pupils. Cardiovascular: Normal S1 & S2, no rubs, murmurs or gallops. No JVD. Pulse regular. Not tachycardic. Lungs: Diminished breath sounds. No wheeze or rales anteriorly or laterally. Abdomen: Soft, non-tender, no rigidity. Normal bowel sounds. Extremities: No deformity, no edema or tenderness, no joint swelling or clubbing. Neurological: Moves all extremities, no facial asymmetry or slurring of speech. Pulses: pedal and radial pulses normal +2. - Assessment and Plan (1) Acute on chronic respiratory failure with hypoxia and hypercapnia Current Visit: Yes Status: Acute Assessment and Plan: Continues to tolerate nasal cannula today, no tachycardia, saturating well Continue monitoring off of bipap PT/OT eval to assess prior to discharge (likely to SNF) (2) COPD exacerbation Current Visit: Yes Status: Acute Assessment and Plan: Transitioned to 40mg steroid Continuing Levaquin (3) Community acquired pneumonia Current Visit: Yes Status: Acute Assessment and Plan: bibasilar infiltrates on CTA, transitioned to Levaquin from Cefipime, will continue for 5 days Cultures negative (4) Diastolic CHF, acute on chronic Current Visit: Yes Status: Acute Assessment and Plan: BB discontinued in setting of hypotension, cardizem short acting started for rhythm control, monitoring bps, still in low 90s, giving IV fluids today, encouraged po intake (5) Transaminitis Current Visit: Yes Status: Acute Assessment and Plan: continues to downtrend (6) Thrombocytopenia Current Visit: Yes Status: Acute Assessment and Plan: HIT ab remains pending (7) Paroxysmal atrial fibrillation Current Visit: Yes Status: Chronic Assessment and Plan: Afibrvr this admission likely 2/2 to hypoxia, cardiac excitation, converted after o2 titration, bipap, has been nsr since; switched to cardizem from BB due to hypotension, prior auth for Xarelto pending (8) Raynaud disease Current Visit: Yes Status: Chronic Assessment and Plan: chronic condition, outpatient monitoring (9) Rheumatoid arthritis Current Visit: Yes Status: Chronic Assessment and Plan: chronic condition, outpatient monitoring (10) Hypertension Current Visit: Yes Status: Chronic Assessment and Plan: hx htn, hypotensive today and yesterday, bb held and switched to cardizem, receiving gentle hydration, encouraged po intake (11) Tobacco dependence Current Visit: Yes Status: Chronic Assessment and Plan: cessation discussed (12) DVT prophylaxis Current Visit: Yes Status: Acute Assessment and Plan: heparin discontinued, on scds, pf4 ab pending - Time Spent with Patient Total time spent is greater than 50% in coordination of care (as documented) at patient's floor/unit and/or counseling patient: Internal Medicine: Result - Labs CBC & Chem 7: 08/15/18 04:46 08/16/18 09:14 Labs: BMP 08/16/18 09:14 Sodium 127 L Potassium 4.9 Chloride 97 L Carbon Dioxide 27 BUN 24 H Creatinine 0.66 Glucose 191 H Calcium 9.2 Liver Function 08/16/18 Range/Units 04:53 Total Bilirubin 0.8 (0.3-1.0) mg/dL Direct Bilirubin 0.3 H (0.0-0.2) mg/dL AST 88 H (13-39) Units/L ALT 206 H (7-52) Units/L Alkaline Phosphatase 71 (34-104) Units/L Albumin 2.5 L (3.5-5.7) g/dL - ABG Interpretation ABG results: ABG ABG pH 7.38 pH Units (7.32-7.45) 08/14/18 08:26 ABG pCO2 49 mmHg (35-45) H 08/14/18 08:26 ABG pO2 86 mmHg (85-104) 08/14/18 08:26 ABG O2 Saturation 96 % (95-98) 08/14/18 08:26 PT/INR, D-dimer PT 25.8 Seconds (9.4-12.1) H 08/13/18 03:10 Consult Discharge Plan - Plan Referrals: Les Merchant DO [Primary Care Provider] - Prescriptions: Rivaroxaban [Xarelto] 20 mg PO DAILY #30 tablet <Vitaly Thorpe - Last Filed: 08/16/18 18:53> Hospitalist Progress Note - Encounter Date of Encounter: 08/16/18 - Exam Vitals: Temp Pulse Resp BP Pulse Ox 97.7 F 68 16 92/50 97 08/16/18 15:44 08/16/18 15:44 08/16/18 15:44 08/16/18 17:04 08/16/18 15:44 - Assessment and Plan (1) Acute on chronic respiratory failure with hypoxia and hypercapnia Current Visit: Yes Status: Acute (2) COPD exacerbation Current Visit: Yes Status: Acute (3) Paroxysmal atrial fibrillation Current Visit: Yes Status: Chronic (4) Diastolic CHF, acute on chronic Current Visit: Yes Status: Acute (5) Thrombocytopenia Current Visit: Yes Status: Acute (6) Acute metabolic encephalopathy Current Visit: Yes Status: Resolved (7) Community acquired pneumonia Current Visit: Yes Status: Acute (8) Transaminitis Current Visit: Yes Status: Acute (9) Hypertension Current Visit: Yes Status: Chronic (10) Injection site extravasation Current Visit: Yes Status: Resolved (11) Raynaud disease Current Visit: Yes Status: Chronic (12) Rheumatoid arthritis Current Visit: Yes Status: Chronic (13) Tobacco abuse Current Visit: Yes Status: Chronic (14) DVT prophylaxis Current Visit: Yes Status: Acute - Time Spent with Patient Total time spent is greater than 50% in coordination of care (as documented) at patient's floor/unit and/or counseling patient: Internal Medicine: Result - Labs CBC & Chem 7: 08/15/18 04:46 08/16/18 09:14 Labs: BMP 08/16/18 09:14 Sodium 127 L Potassium 4.9 Chloride 97 L Carbon Dioxide 27 BUN 24 H Creatinine 0.66 Glucose 191 H Calcium 9.2 Liver Function 08/16/18 Range/Units 04:53 Total Bilirubin 0.8 (0.3-1.0) mg/dL Direct Bilirubin 0.3 H (0.0-0.2) mg/dL AST 88 H (13-39) Units/L ALT 206 H (7-52) Units/L Alkaline Phosphatase 71 (34-104) Units/L Albumin 2.5 L (3.5-5.7) g/dL - ABG Interpretation ABG results: ABG ABG pH 7.38 pH Units (7.32-7.45) 08/14/18 08:26 ABG pCO2 49 mmHg (35-45) H 08/14/18 08:26 ABG pO2 86 mmHg (85-104) 08/14/18 08:26 ABG O2 Saturation 96 % (95-98) 08/14/18 08:26 PT/INR, D-dimer PT 25.8 Seconds (9.4-12.1) H 08/13/18 03:10 - Attending Attestation I examined this patient and my medical decision-making was reviewed with the Resident Physician on 08/16/18. I agree with the documented findings, disposition and treatment plan as described except to the extent set forth below. Ms Yao is currently admitted for resp failure due to COPD. She remains moderate to high risk due to potential for worsening clinical status. Ms Yao is up to chair. No fever or chills. Still on oxygen. No GI issues. Exam Alert Comfortable up in chair. Mucus membranes dry Heart reg Decreased breath sound with no wheeze at this time. Abd soft No edema I/P 1. Resp failure 2. COPD Further diagnoses and plan as above. <Iggy John - Last Filed: 08/16/18 17:17> (3) Community acquired pneumonia Qualifiers: Laterality: unspecified laterality Qualified Code(s): J18.9 - Pneumonia, unspecified organism (8) Raynaud disease Qualifiers: Raynaud?s-associated gangrene presence: without gangrene Qualified Code(s): I73.00 - Raynaud's syndrome without gangrene (9) Rheumatoid arthritis Qualifiers: Rheumatoid arthritis location: unspecified site Rheumatoid factor presence: unspecified presence Qualified Code(s): M06.9 - Rheumatoid arthritis, unspecified (10) Hypertension Qualifiers: Hypertension type: essential hypertension Qualified Code(s): I10 - Essential (primary) hypertension <Vitaly Thorpe - Last Filed: 08/16/18 18:53> (7) Community acquired pneumonia Qualifiers: Laterality: unspecified laterality Qualified Code(s): J18.9 - Pneumonia, unspecified organism (9) Hypertension Qualifiers: Hypertension type: essential hypertension Qualified Code(s): I10 - Essential (primary) hypertension (10) Injection site extravasation Qualifiers: Encounter type: subsequent encounter Qualified Code(s): T80.818D - Extravasation of other vesicant agent, subsequent encounter (11) Raynaud disease Qualifiers: Raynaud?s-associated gangrene presence: without gangrene Qualified Code(s): I73.00 - Raynaud's syndrome without gangrene (12) Rheumatoid arthritis Qualifiers: Rheumatoid arthritis location: unspecified site Rheumatoid factor presence: unspecified presence Qualified Code(s): M06.9 - Rheumatoid arthritis, unspecified
--- NOTE | 2018-08-16 17:54 | Electrocardiograph Report ---
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
[2018-08-17] MEDS ORDERED: 0.9 % Sodium Chloride 500 ML IVC ONE ×2 (00:21→03:56)
[2018-08-17] MEDS ORDERED: 0.9 % Sodium Chloride 500 ML ONE (00:30)
[2018-08-17] MEDS: Ipratropium/Albuterol Neb 3 ML IH SCH ×6 (03:35→23:03)
[2018-08-17 07:19] LABS: Hematocrit 33.2 % (35.3-44.9); Hemoglobin 10.3 g/dL (11.5-15.4); Immature Platelets 7.3 % (1.1-6.1); Mean Corpuscular Hemoglobin 28.1 pg (28.0-33.3); Mean Corpuscular Volume 90.5 fL (83.0-100.0); Mean Platelet Volume 10.9 fL (9.4-12.4); Red Blood Count 3.67 M/mcL (3.82-4.97); Red Cell Distribution Width 16.5 % (11.5-14.5)
[2018-08-17 07:34] LABS: BUN/Creatinine Ratio 36 (6-26); Blood Urea Nitrogen 17 mg/dL (8-23); Calcium 8.1 mg/dL (8.6-10.3); Carbon Dioxide 25 mEq/L (23-29); Chloride 103 mEq/L (98-107); Glucose 90 mg/dL (70-105); Osmolality,Calculated 271 (280-300); Potassium 4.2 mEq/L (3.5-5.1); Sodium 130 mEq/L (136-145); eGFR For Non-African Americans > 60 (> 60)
--- NOTE | 2018-08-17 08:55 | Internal Med Progress Note ---
Hospitalist Progress Note - Encounter Date of Encounter: 08/17/18 Time of Encounter: 08:55 - Exam Vitals: Temp Pulse Resp BP Pulse Ox 97.6 F 74 16 81/49 99 08/17/18 07:03 08/17/18 07:03 08/17/18 07:21 08/17/18 07:03 08/17/18 07:21 - Assessment and Plan (1) COPD exacerbation Current Visit: Yes Status: Acute (2) Community acquired pneumonia Current Visit: Yes Status: Acute (3) Raynaud disease Current Visit: Yes Status: Chronic (4) Rheumatoid arthritis Current Visit: Yes Status: Chronic (5) Hypertension Current Visit: Yes Status: Chronic (6) DVT prophylaxis Current Visit: Yes Status: Acute (7) Diastolic CHF, acute on chronic Current Visit: Yes Status: Acute (8) Acute on chronic respiratory failure with hypoxia and hypercapnia Current Visit: Yes Status: Acute (9) Injection site extravasation Current Visit: Yes Status: Resolved (10) Transaminitis Current Visit: Yes Status: Acute (11) Acute metabolic encephalopathy Current Visit: Yes Status: Resolved (12) Tobacco abuse Current Visit: Yes Status: Chronic (13) Thrombocytopenia Current Visit: Yes Status: Acute (14) Paroxysmal atrial fibrillation Current Visit: Yes Status: Chronic - Time Spent with Patient Total time spent is greater than 50% in coordination of care (as documented) at patient's floor/unit and/or counseling patient: Internal Medicine: Result - Labs CBC & Chem 7: 08/17/18 06:35 08/17/18 06:35 Labs: Short CBC 08/17/18 Range/Units 06:35 WBC 8.3 (4.3-11.1) K/mcL Hgb 10.3 L (11.5-15.4) g/dL Hct 33.2 L (35.3-44.9) % Plt Count 71 L (140-400) K/mcL BMP 08/16/18 08/17/18 09:14 06:35 Sodium 127 L 130 L Potassium 4.9 4.2 Chloride 97 L 103 Carbon Dioxide 27 25 BUN 24 H 17 Creatinine 0.66 0.47 L Glucose 191 H 90 Calcium 9.2 8.1 L - ABG Interpretation ABG results: ABG ABG pH 7.38 pH Units (7.32-7.45) 08/14/18 08:26 ABG pCO2 49 mmHg (35-45) H 08/14/18 08:26 ABG pO2 86 mmHg (85-104) 08/14/18 08:26 ABG O2 Saturation 96 % (95-98) 08/14/18 08:26 PT/INR, D-dimer PT 25.8 Seconds (9.4-12.1) H 08/13/18 03:10 Consult Discharge Plan - Plan Referrals: Les Merchant DO [Primary Care Provider] - Prescriptions: Rivaroxaban [Xarelto] 20 mg PO DAILY #30 tablet (2) Community acquired pneumonia Qualifiers: Laterality: unspecified laterality Qualified Code(s): J18.9 - Pneumonia, unspecified organism (3) Raynaud disease Qualifiers: Raynaud?s-associated gangrene presence: without gangrene Qualified Code(s): I73.00 - Raynaud's syndrome without gangrene (4) Rheumatoid arthritis Qualifiers: Rheumatoid arthritis location: unspecified site Rheumatoid factor presence: unspecified presence Qualified Code(s): M06.9 - Rheumatoid arthritis, unspecified (5) Hypertension Qualifiers: Hypertension type: essential hypertension Qualified Code(s): I10 - Essential (primary) hypertension (9) Injection site extravasation Qualifiers: Encounter type: subsequent encounter Qualified Code(s): T80.818D - Extravasation of other vesicant agent, subsequent encounter
[2018-08-17] MEDS ORDERED: MethylPREDNISolone 40 MG/ML VIAL IVP SCH (09:00)
[2018-08-17] MEDS: Gabapentin 400 MG CAPSULE PO SCH ×3 (09:01→23:03)
[2018-08-17] MEDS: clonazePAM 1 MG TABLET PO SCH ×3 (09:01→23:03)
[2018-08-17] MEDS: Aspirin Enteric Coated 81 MG Tablet PO SCH (09:01)
[2018-08-17] MEDS: levoFLOXacin 500 MG TABLET PO SCH (11:39)
[2018-08-17 14:14] LABS: VBG Ionized Calcium 1.24 mmol/L (1.15-1.35)
--- NOTE | 2018-08-17 17:01 | Internal Med Progress Note ---
<Yue Katz - Last Filed: 08/17/18 16:57> Hospitalist Progress Note - Encounter Date of Encounter: 08/17/18 Time of Encounter: 09:20 - Subjective Interval History: Patient seen and examined at bedside. She is A&Ox3 with no complaints. She stated that her SOB has improved and is at baseline. She feels comfortable to go home tomorrow. Her nurse reported borderline low BP but the patient was asymptomatic and stated that low 90's systolic is baseline. - Exam Vitals: Temp Pulse Resp BP Pulse Ox 97.4 F L 82 16 96/58 94 08/17/18 15:11 08/17/18 15:11 08/17/18 15:55 08/17/18 15:11 08/17/18 15:55 Exam: General: Alert, in no acute distress, pleasant. Comfortable in bed. Off of bipap , saturating well. Skin: Normal color, no rash, no lesions. H: Normocephalic. EENT: EOMI Mucus membranes moist, chronic/known asymmetry pupils. Cardiovascular: Normal S1 & S2, no rubs, murmurs or gallops. No JVD. Pulse regular. Not tachycardic. Lungs: Diminished breath sounds. No wheeze or rales anteriorly or laterally. Abdomen: Soft, non-tender, no rigidity. Normal bowel sounds. Extremities: No deformity, no edema or tenderness, no joint swelling or clubbing. Neurological: Moves all extremities, no facial asymmetry or slurring of speech. Pulses: pedal and radial pulses normal +2. - Assessment and Plan (1) Community acquired pneumonia Current Visit: Yes Status: Acute Assessment and Plan: CTA showed bibasilar infiltrates. Currently on levquin day 3 of 5 Cultures are negative at this time. using supplemental oxygen (2) COPD exacerbation Current Visit: Yes Status: Acute Assessment and Plan: Currently in acute exacerbation. Will begin taper of steroids to daily today and will switch to PO tomorrow. Abx as above Continue oxygen and abx at this time. (3) Raynaud disease Current Visit: Yes Status: Chronic Assessment and Plan: Outpatient monitoring (4) Rheumatoid arthritis Current Visit: Yes Status: Chronic Assessment and Plan: Outpatient monitoring (5) Hypertension Current Visit: Yes Status: Chronic Assessment and Plan: Blood pressure has been on low side today. Asymptomatic. Low 90s is patient's baseline. Holding any meds and diuresis for now. (6) DVT prophylaxis Current Visit: Yes Status: Acute Assessment and Plan: Now getting SCDs as her platelets have decreased. (7) Diastolic CHF, acute on chronic Current Visit: Yes Status: Acute Assessment and Plan: Has hx of diastolic heart failure. Diuretic on hold due to blood pressure. (8) Acute on chronic respiratory failure with hypoxia and hypercapnia Current Visit: Yes Status: Acute Assessment and Plan: resolved Pt presented to ED in acute hypoxic resp failure with saturation in 70s. (9) Injection site extravasation Current Visit: Yes Status: Resolved Assessment and Plan: She had IV contrast extravasation into left upper extremity Hyaluronidase ordered Stable at this time. (10) Transaminitis Current Visit: Yes Status: Acute Assessment and Plan: Pt has elevated transaminases and INR. Most likely due to hypotension prior to admission. Continues to slowly improve. (11) Acute metabolic encephalopathy Current Visit: Yes Status: Resolved Assessment and Plan: Appears to be related to illness, liver function, respiratory failure. Seems to be doing better today. Continue supportive care. (12) Tobacco abuse Current Visit: Yes Status: Chronic Assessment and Plan: Cessation counselling (13) Thrombocytopenia Current Visit: Yes Status: Acute Assessment and Plan: Doubt HIT but antibody ordered and subqu heparin stopped. (14) Paroxysmal atrial fibrillation Current Visit: Yes Status: Chronic Assessment and Plan: Currently in sinus rhythm. Had rapid a fib when off bipap last night. Monitor for return of tachycardia. Will need to address issue of anticoagulation prior to discharge. - Time Spent with Patient Total time spent is greater than 50% in coordination of care (as documented) at patient's floor/unit and/or counseling patient: Internal Medicine: Result - Labs CBC & Chem 7: 08/17/18 06:35 08/17/18 06:35 Labs: Short CBC 08/17/18 Range/Units 06:35 WBC 8.3 (4.3-11.1) K/mcL Hgb 10.3 L (11.5-15.4) g/dL Hct 33.2 L (35.3-44.9) % Plt Count 71 L (140-400) K/mcL BMP 08/17/18 06:35 Sodium 130 L Potassium 4.2 Chloride 103 Carbon Dioxide 25 BUN 17 Creatinine 0.47 L Glucose 90 Calcium 8.1 L - ABG Interpretation ABG results: ABG ABG pH 7.38 pH Units (7.32-7.45) 08/14/18 08:26 ABG pCO2 49 mmHg (35-45) H 08/14/18 08:26 ABG pO2 86 mmHg (85-104) 08/14/18 08:26 ABG O2 Saturation 96 % (95-98) 08/14/18 08:26 PT/INR, D-dimer PT 25.8 Seconds (9.4-12.1) H 08/13/18 03:10 Consult Discharge Plan - Plan Referrals: Les Merchant DO [Primary Care Provider] - Prescriptions: Rivaroxaban [Xarelto] 20 mg PO DAILY #30 tablet <Vitaly Thorpe - Last Filed: 08/17/18 18:52> Hospitalist Progress Note - Encounter Date of Encounter: 08/17/18 - Exam Vitals: Temp Pulse Resp BP Pulse Ox 97.4 F L 82 16 96/58 94 08/17/18 15:11 08/17/18 15:11 08/17/18 15:55 08/17/18 15:11 08/17/18 15:55 - Assessment and Plan (1) Hypotension Current Visit: Yes Status: Acute (2) COPD exacerbation Current Visit: Yes Status: Acute (3) Community acquired pneumonia Current Visit: Yes Status: Acute (4) Raynaud disease Current Visit: Yes Status: Chronic (5) Rheumatoid arthritis Current Visit: Yes Status: Chronic (6) Hypertension Current Visit: Yes Status: Chronic (7) DVT prophylaxis Current Visit: Yes Status: Acute (8) Diastolic CHF, acute on chronic Current Visit: Yes Status: Acute (9) Acute on chronic respiratory failure with hypoxia and hypercapnia Current Visit: Yes Status: Acute (10) Injection site extravasation Current Visit: Yes Status: Resolved (11) Transaminitis Current Visit: Yes Status: Acute (12) Acute metabolic encephalopathy Current Visit: Yes Status: Resolved (13) Tobacco abuse Current Visit: Yes Status: Chronic (14) Thrombocytopenia Current Visit: Yes Status: Acute (15) Paroxysmal atrial fibrillation Current Visit: Yes Status: Chronic - Time Spent with Patient Total time spent is greater than 50% in coordination of care (as documented) at patient's floor/unit and/or counseling patient: Internal Medicine: Result - Labs CBC & Chem 7: 08/17/18 06:35 08/17/18 06:35 Labs: Short CBC 08/17/18 Range/Units 06:35 WBC 8.3 (4.3-11.1) K/mcL Hgb 10.3 L (11.5-15.4) g/dL Hct 33.2 L (35.3-44.9) % Plt Count 71 L (140-400) K/mcL BMP 08/17/18 06:35 Sodium 130 L Potassium 4.2 Chloride 103 Carbon Dioxide 25 BUN 17 Creatinine 0.47 L Glucose 90 Calcium 8.1 L - ABG Interpretation ABG results: ABG ABG pH 7.38 pH Units (7.32-7.45) 08/14/18 08:26 ABG pCO2 49 mmHg (35-45) H 08/14/18 08:26 ABG pO2 86 mmHg (85-104) 08/14/18 08:26 ABG O2 Saturation 96 % (95-98) 08/14/18 08:26 PT/INR, D-dimer PT 25.8 Seconds (9.4-12.1) H 08/13/18 03:10 - Attending Attestation I examined this patient and my medical decision-making was reviewed with the Resident Physician on 08/17/18. I agree with the documented findings, disposition and treatment plan as described except to the extent set forth below. Ms Yao is currently admitted for resp failure, COPD and hypotension. She remains moderate to high risk due to potential for worsening clinical status. Ms Yao has been hypotensive all night. No fever or chills. No dizziness. No confusion. Breathing approaching baseline. Exam Alert Comfortable Mucus membranes dry Heart reg Lungs diminished. No wheeze Abd soft I/P 1. Resp failure 2. COPD 3. Hypotension - asymptomatic. Further diagnoses and plan as above. <Yue Katz - Last Filed: 08/17/18 16:57> (1) Community acquired pneumonia Qualifiers: Laterality: unspecified laterality Qualified Code(s): J18.9 - Pneumonia, unspecified organism (3) Raynaud disease Qualifiers: Raynaud?s-associated gangrene presence: without gangrene Qualified Code(s): I73.00 - Raynaud's syndrome without gangrene (4) Rheumatoid arthritis Qualifiers: Rheumatoid arthritis location: unspecified site Rheumatoid factor presence: unspecified presence Qualified Code(s): M06.9 - Rheumatoid arthritis, unspecified (5) Hypertension Qualifiers: Hypertension type: essential hypertension Qualified Code(s): I10 - Essential (primary) hypertension (9) Injection site extravasation Qualifiers: Encounter type: subsequent encounter Qualified Code(s): T80.818D - Extravasation of other vesicant agent, subsequent encounter <Vitaly Thorpe - Last Filed: 08/17/18 18:52> (1) Hypotension Qualifiers: Hypotension type: hypotension due to drug Qualified Code(s): I95.2 - Hypotension due to drugs (3) Community acquired pneumonia Qualifiers: Laterality: unspecified laterality Qualified Code(s): J18.9 - Pneumonia, unspecified organism (4) Raynaud disease Qualifiers: Raynaud?s-associated gangrene presence: without gangrene Qualified Code(s): I73.00 - Raynaud's syndrome without gangrene (5) Rheumatoid arthritis Qualifiers: Rheumatoid arthritis location: unspecified site Rheumatoid factor presence: unspecified presence Qualified Code(s): M06.9 - Rheumatoid arthritis, unspecified (6) Hypertension Qualifiers: Hypertension type: essential hypertension Qualified Code(s): I10 - Essential (primary) hypertension (10) Injection site extravasation Qualifiers: Encounter type: subsequent encounter Qualified Code(s): T80.818D - Extravasation of other vesicant agent, subsequent encounter
[2018-08-18] MEDS: Ipratropium/Albuterol Neb 3 ML IH SCH ×5 (03:48→19:32)
[2018-08-18 05:56] LABS: Basophils % 0.1 %; Immature Granulocytes % 0.7 % (0-4)
[2018-08-18 05:58] LABS: Eosinophils % 0.4 %; Hematocrit 35.7 % (35.3-44.9); Hemoglobin 11.3 g/dL (11.5-15.4); Immature Platelets 7.5 % (1.1-6.1); Lymphocytes # 1.2 K/mcL (0.6-4.6); Lymphocytes % 12.1 %; Mean Corpuscular HGB Conc 31.7 g/dL (31.6-35.5); Mean Corpuscular Hemoglobin 28.3 pg (28.0-33.3); Mean Corpuscular Volume 89.3 fL (83.0-100.0); Mean Platelet Volume 10.3 fL (9.4-12.4); Monocytes # 1.1 K/mcL (0.0-1.3); Monocytes % 11.5 %; Neutrophils # 7.4 K/mcL (1.6-8.9); Red Cell Distribution Width 16.3 % (11.5-14.5); Segmented Neutrophils % 75.2 %
[2018-08-18 06:43] LABS: Platelet Count 89 K/mcL (140-400)
[2018-08-18 06:50] LABS: BUN/Creatinine Ratio 29 (6-26); Blood Urea Nitrogen 14 mg/dL (8-23); Carbon Dioxide 27 mEq/L (23-29); Chloride 100 mEq/L (98-107); Glucose 88 mg/dL (70-105); Osmolality,Calculated 274 (280-300); Potassium 4.2 mEq/L (3.5-5.1); Sodium 132 mEq/L (136-145); eGFR For Non-African Americans > 60 (> 60)
--- NOTE | 2018-08-18 07:41 | Discharge Summary ---
<Iggy Chang - Last Filed: 08/18/18 17:29> - NOTES TO OUTPATIENT PROVIDER Notes to Outpatient Provider: Prior-auth likely required for patient to start Xarelto 20mg daily. She may be given additional coupons if PCP documents "inability to go to INR clinic for interval monitoring" due to necessity/taxing effort to leave the home, she does receive home health after her recent admission. CBC in 1 week for thrombocytopenia ordered. Neurontin taper is set in ambulatory orders. Orders not resulted at time of discharge: Pending orders 08/12/18 21:09 Culture,Sputum with Gram Stain [RM] Routine 08/14/18 08:58 Hep Ind Thromb(HIT) PF4 IgG Routine 08/18/18 05:44 BMP [Basic Metabolic Panel] AM 0400 Date of Encounter: 08/18/18 Time of Encounter: 09:30 - Discharge Diagnosis (1) Acute on chronic respiratory failure with hypoxia and hypercapnia Priority: Primary Status: Acute (2) COPD exacerbation Priority: Secondary Status: Acute (3) Community acquired pneumonia Priority: Secondary Status: Acute Qualifiers: Laterality: unspecified laterality Qualified Code(s): J18.9 - Pneumonia, unspecified organism (4) Diastolic CHF, acute on chronic Priority: Secondary Status: Acute (5) Transaminitis Priority: Secondary Status: Acute (6) Thrombocytopenia Priority: Secondary Status: Acute (7) Paroxysmal atrial fibrillation Priority: Secondary Status: Chronic (8) Raynaud disease Priority: Secondary Status: Chronic Qualifiers: Raynaud?s-associated gangrene presence: without gangrene Qualified Code(s) : I73.00 - Raynaud's syndrome without gangrene (9) Rheumatoid arthritis Priority: Secondary Status: Chronic Qualifiers: Rheumatoid arthritis location: unspecified site Rheumatoid factor presence : unspecified presence Qualified Code(s): M06.9 - Rheumatoid arthritis, unspecified (10) Hypertension Priority: Secondary Status: Chronic Qualifiers: Hypertension type: essential hypertension Qualified Code(s): I10 - Essential (primary) hypertension (11) Tobacco dependence Priority: Secondary Status: Chronic (12) DVT prophylaxis Priority: Secondary Status: Acute Hospital course: Ms. Yao is a 58 year old female with past medical history significant for COPD and HF who was admitted for acute respiratory failure on 08/12 with hypoxia necessitating bipap. Noted to be in new onset afib rvr. Initial attempts at bipap weaning resulted in somnolence, co2 retention, and return to afib-rvr. Her blood pressures through her hospital stay remained in the 80, 90s to low 100s. Medication changes made: 1) D/c'd toprol, d/c'd cardizem that she receiving inpatient, she converted to NSR and has been since, she is hypotensive , we wanted to discharge with month of rhythm control but blood pressures have been thready 2) Neurontin taper 3) 0.5mg clonopin instead of 1mg tid po prn Medication to consider adding in short-intermediate term: 1) Xarelto 20mg po daily after thrombocytopenia resolves She ultimately tolerated bipap weaning, saturating well on 2L nasal cannula, after walk test, she qualified for continuous o2 which was prescribed. She is to be discharged with new rx for commode, wheeled walker, changed dosage for prn clonopin, neurontin taper, and 1 more dose of Levaquin. Discharge discussed with: patient - Time Spent with Patient Total time spent providing and/or coordinating discharge services: Greater than 30 minutes - Discharge Medications Prescriptions: clonazePAM [Clonazepam] 0.5 mg PO TID PRN 30 Days #90 tablet PRN Reason: Anxiety Commode - Three In One [THREE IN ONE COMMODE] 1 each .ROUTE PRN PRN #1 each PRN Reason: See Comments Gabapentin [Neurontin] 800 mg PO TAPER 30 Days #46 tablet levoFLOXacin [Levaquin] 500 mg PO DAILY #1 tablet Walker W Wheels [WHEELED WALKER] 1 each .ROUTE AD #1 each Home Medications: Guaifenesin [Guaifenesin ER] 600 mg PO Q12H 03/09/16 [History] Bethanechol [Urecholine] 25 mg PO TID 03/16/17 [History] DiphenhydraMINE [Benadryl] 25 mg PO BID 03/16/17 [History] Estrogens, Conjugated [Premarin] 0.625 mg PO DAILY 03/16/17 [History] Ipratropium [ATROVENT Inhaler] 2 puff IH QID 03/16/17 [History] Loratadine [Allergy Relief] 10 mg PO DAILY 03/16/17 [History] SUMAtriptan Succinate [Imitrex] 100 mg PO Q2H PRN MDD 2 TABS 03/16/17 [History] Albuterol Sulfate [Albuterol Inhaler] 2 puff IH Q4HR PRN #1 hfa.aer.ad 06/15/17 [Rx] Aspirin [Lo-Dose Aspirin EC] 81 mg PO DAILY 06/15/17 [History] clonazePAM [Clonazepam] 1 mg PO TID 03/16/18 [History] Buprenorphine [Butrans] 15 mcg TD QWEEK 08/12/18 [History] Citalopram Hydrobromide [Citalopram HBr] 20 mg PO DAILY 08/13/18 [History] Ergocalciferol (VITAMIN D2) [Vitamin D2] 50,000 unit PO 2XW 08/13/18 [History] Commode - Three In One [THREE IN ONE COMMODE] 1 each .ROUTE PRN PRN #1 each [Rx] Gabapentin [Neurontin] 800 mg PO TAPER 30 Days #46 tablet 08/18/18 [Rx] Walker W Wheels [WHEELED WALKER] 1 each .ROUTE AD #1 each 08/18/18 [Rx] clonazePAM [Clonazepam] 0.5 mg PO TID PRN 30 Days #90 tablet 08/18/18 [Rx] levoFLOXacin [Levaquin] 500 mg PO DAILY #1 tablet 08/18/18 [Rx] Allergies/Adverse Reactions: 3 Allergy/AdvReac Type Severity Reaction Status Date / Time Penicillins Allergy Unknown See Verified 08/13/18 11:31 Comments azithromycin [From Zithromax] Allergy See Verified 08/13/18 11:31 Comments capsaicin [From Capzasin] Allergy See Verified 08/13/18 11:31 Comments codeine Allergy See Verified 08/13/18 11:31 Comments hydrocodone Allergy See Verified 08/13/18 11:31 Comments latex Allergy See Verified 08/13/18 11:31 Comments levofloxacin [From Levaquin] Allergy See Verified 08/13/18 11:31 Comments menthol [From Capzasin] Allergy See Verified 08/13/18 11:31 Comments morphine Allergy See Verified 08/13/18 11:31 Comments quetiapine Allergy See Verified 08/13/18 11:31 Comments sertraline Allergy See Verified 08/13/18 11:31 Comments sodium chloride Allergy See Verified 08/13/18 11:31 Comments venom-honey bee Allergy See Verified 08/13/18 11:31 [bee venom (honey bee)] Comments Date of admission: 08/13/18 10:35 Primary care physician: Les Corral DO Consults: 08/12/18 21:11 Consult to Nurse Navigator [CONS] Routine Comment: 08/14/18 10:56 Consult to Brazing Machine Setter [CONS] Routine Reason for SW Consult: Obtain POA, ECF needs 08/15/18 11:22 PT [Consult to Physical Therapy] [CONS] Routine Comment: Evaluate, develop and implement POC Reason for Consult: possible placement to ECF Does patient have active BEDREST order?: No Is patient medically & hemodynamically stable?: Yes Patient assessed for mobility or mobilized this visit?: Yes 08/15/18 11:25 OT [Consult to Occupational Therapy] [CONS] Routine Comment: Evaluate, develop and implement POC Reason for Consult: posible placement to ECF Does patient have active BEDREST order?: No Is patient medically & hemodynamically stable?: Yes Patient assessed for mobility or mobilized this visit?: Yes 08/16/18 08:47 Consult to Brazing Machine Setter [CONS] Routine Reason for SW Consult: pt monthly rx cost for eliquis 5mg bid versus xarelto cost at 20mg daily; thank you, jennifer chang - Constitutional Vitals: Temp Pulse Resp BP Pulse Ox 97.6 F 79 16 96/47 97 08/17/18 20:06 08/18/18 05:14 08/18/18 05:14 08/18/18 05:14 08/18/18 05:14 General appearance: Present: cachectic, A&O X 3, pleasant, answers questions appropriately Exam: General: Alert, in no acute distress, pleasant. Comfortable in bed. Off of bipap , saturating well. Skin: Normal color, no rash, no lesions. H: Normocephalic. EENT: EOMI Mucus membranes moist, chronic/known asymmetry pupils. Cardiovascular: Normal S1 & S2, no rubs, murmurs or gallops. No JVD. Pulse regular. Not tachycardic. Lungs: Diminished breath sounds R>L basilar chronic/known surgery. No wheeze or rales anteriorly or laterally. Abdomen: Soft, non-tender, no rigidity. Normal bowel sounds. Extremities: No deformity, no edema or tenderness, no joint swelling or clubbing. Neurological: Moves all extremities, no facial asymmetry or slurring of speech. Pulses: pedal and radial pulses normal +2. - Patient Status Disposition: Home, Self-Care Condition: Fair Functional capacity at discharge: uses cane/walker Overall status at discharge: patient is progressing back to baseline - Discharge Instructions Instructions: Gabapentin (By mouth), Heart Failure (DC), Atrial Fibrillation ( DC), Acute Respiratory Distress Syndrome (DC), Peripheral Vascular Disorders (DC ), Chronic Obstructive Pulmonary Disease (DC), Chronic Hypertension (DC), Pneumonia (DC) Follow Up With: Les Merchant DO [Primary Care Provider] - 08/23/18 3:00 pm - Diet and Activity Activity: increase activity as tolerated Diet: advance to your usual diet <Vitaly Thorpe - Last Filed: 08/18/18 17:52> Orders not resulted at time of discharge: Pending orders 08/12/18 21:09 Culture,Sputum with Gram Stain [RM] Routine Date of Encounter: 08/18/18 - Discharge Diagnosis (1) Hypotension Priority: Secondary Status: Resolved Qualifiers: Hypotension type: hypotension due to drug Qualified Code(s): I95.2 - Hypotension due to drugs (2) COPD exacerbation Status: Resolved (3) Community acquired pneumonia Status: Acute Qualifiers: Laterality: unspecified laterality Qualified Code(s): J18.9 - Pneumonia, unspecified organism (4) Raynaud disease Status: Chronic Qualifiers: Raynaud?s-associated gangrene presence: without gangrene Qualified Code(s) : I73.00 - Raynaud's syndrome without gangrene (5) Rheumatoid arthritis Status: Chronic Qualifiers: Rheumatoid arthritis location: unspecified site Rheumatoid factor presence : unspecified presence Qualified Code(s): M06.9 - Rheumatoid arthritis, unspecified (6) Hypertension Status: Chronic Qualifiers: Hypertension type: essential hypertension Qualified Code(s): I10 - Essential (primary) hypertension (7) DVT prophylaxis Status: Acute (8) Diastolic CHF, acute on chronic Status: Resolved (9) Acute on chronic respiratory failure with hypoxia and hypercapnia Status: Resolved (10) Injection site extravasation Priority: Secondary Status: Resolved Qualifiers: Encounter type: subsequent encounter Qualified Code(s): T80.818D - Extravasation of other vesicant agent, subsequent encounter (11) Transaminitis Status: Acute (12) Acute metabolic encephalopathy Priority: Secondary Status: Resolved (13) Tobacco abuse Priority: Secondary Status: Chronic (14) Thrombocytopenia Status: Acute (15) Paroxysmal atrial fibrillation Status: Chronic Hospital course: Ms. Yao is a 58 year old female - Time Spent with Patient Total time spent providing and/or coordinating discharge services: 39min Date of admission: 08/13/18 10:35 Primary care physician: Les Corral DO Consults: 08/12/18 21:11 Consult to Nurse Navigator [CONS] Routine Comment: 08/14/18 10:56 Consult to Brazing Machine Setter [CONS] Routine Reason for SW Consult: Obtain POA, ECF needs 08/15/18 11:22 PT [Consult to Physical Therapy] [CONS] Routine Comment: Evaluate, develop and implement POC Reason for Consult: possible placement to ECF Does patient have active BEDREST order?: No Is patient medically & hemodynamically stable?: Yes Patient assessed for mobility or mobilized this visit?: Yes 08/15/18 11:25 OT [Consult to Occupational Therapy] [CONS] Routine Comment: Evaluate, develop and implement POC Reason for Consult: posible placement to ECF Does patient have active BEDREST order?: No Is patient medically & hemodynamically stable?: Yes Patient assessed for mobility or mobilized this visit?: Yes 08/16/18 08:47 Consult to Brazing Machine Setter [CONS] Routine Reason for SW Consult: pt monthly rx cost for eliquis 5mg bid versus xarelto cost at 20mg daily; thank you, can riccardo chang - Constitutional Vitals: Temp Pulse Resp BP Pulse Ox 97.7 F 76 16 90/58 98 08/18/18 15:42 08/18/18 15:42 08/18/18 16:07 08/18/18 15:42 08/18/18 16:07 - Attending Attestation I examined this patient and my medical decision-making was reviewed with the Resident Physician on 08/18/18. I agree with the documented findings, disposition and treatment plan as described except to the extent set forth below. Ms Yao has been admitted for acute resp failure from COPD. She is now at baseline but does require oxygen. She is up ambulating. She is afebrile and ready for discharge home. Her BP has been low (SBP in 90s) but she says this is what her BP runs at home. She is on now meds for rate control of Parox a fib due to BP. Anticoagulation has been held due to platelets and will be readdressed in clinic. Exam alert Up and walking Mucus membranes dry Heart reg Diminished breath sounds no edema Plan D/C home today with C.
--- NOTE | 2018-08-18 07:43 | Physician Discharge Referral ---
Home Health/Hosp Referral Info Transfer to: Home Health Provider in Charge Post Discharge: PCP - Diagnosis (1) Acute on chronic respiratory failure with hypoxia and hypercapnia Priority: Primary Status: Acute (2) COPD exacerbation Priority: Secondary Status: Acute (3) Community acquired pneumonia Priority: Secondary Status: Acute (4) Diastolic CHF, acute on chronic Priority: Secondary Status: Acute (5) Transaminitis Priority: Secondary Status: Acute (6) Thrombocytopenia Priority: Secondary Status: Acute (7) Paroxysmal atrial fibrillation Priority: Secondary Status: Chronic (8) Raynaud disease Priority: Secondary Status: Chronic (9) Rheumatoid arthritis Priority: Secondary Status: Chronic (10) Hypertension Priority: Secondary Status: Chronic (11) Tobacco dependence Priority: Secondary Status: Chronic (12) DVT prophylaxis Priority: Secondary Status: Acute - Respiratory Orders Smoking Cessation: Smoking cessation has been advised. For more information, call the [place] Tobacco Quit Line at 6-751-YMDZ-NOW. - Services Needed Following services are medically necessary services: Physical Therapy, Occupational Therapy - Transfer Medications Prescriptions: Rivaroxaban [Xarelto] 20 mg PO DAILY #30 tablet Home Medications: Guaifenesin [Guaifenesin ER] 600 mg PO Q12H 03/09/16 [History] Bethanechol [Urecholine] 25 mg PO TID 03/16/17 [History] DiphenhydraMINE [Benadryl] 25 mg PO BID 03/16/17 [History] Estrogens, Conjugated [Premarin] 0.625 mg PO DAILY 03/16/17 [History] Ipratropium [Atrovent Inhaler] 2 puff IH QID 03/16/17 [History] Loratadine [Allergy Relief] 10 mg PO DAILY 03/16/17 [History] SUMAtriptan Succinate [Imitrex] 100 mg PO Q2H PRN MDD 2 TABS 03/16/17 [History] Albuterol Sulfate [Albuterol Inhaler] 2 puff IH Q4HR PRN #1 hfa.aer.ad 06/15/17 [Rx] Aspirin [Lo-Dose Aspirin EC] 81 mg PO DAILY 06/15/17 [History] Gabapentin [Neurontin] 800 mg PO TID 06/15/17 [History] clonazePAM [Clonazepam] 1 mg PO TID 03/16/18 [History] Buprenorphine [Butrans] 15 mcg TD QWEEK 08/12/18 [History] Citalopram Hydrobromide [Citalopram HBr] 20 mg PO DAILY 08/13/18 [History] Ergocalciferol (VITAMIN D2) [Vitamin D2] 50,000 unit PO 2XW 08/13/18 [History] Metoprolol Succinate [[place]sp[place] Sprinkle] 12.5 mg PO DAILY 08/13/18 [History] Rivaroxaban [Xarelto] 20 mg PO DAILY #30 tablet 08/16/18 [Rx] Allergies/Adverse Reactions: 3 Allergy/AdvReac Type Severity Reaction Status Date / Time Penicillins Allergy Unknown See Verified 08/13/18 11:31 Comments azithromycin [From Zithromax] Allergy See Verified 08/13/18 11:31 Comments capsaicin [From Capzasin] Allergy See Verified 08/13/18 11:31 Comments codeine Allergy See Verified 08/13/18 11:31 Comments hydrocodone Allergy See Verified 08/13/18 11:31 Comments latex Allergy See Verified 08/13/18 11:31 Comments levofloxacin [From Levaquin] Allergy See Verified 08/13/18 11:31 Comments menthol [From Capzasin] Allergy See Verified 08/13/18 11:31 Comments morphine Allergy See Verified 08/13/18 11:31 Comments quetiapine Allergy See Verified 08/13/18 11:31 Comments sertraline Allergy See Verified 08/13/18 11:31 Comments sodium chloride Allergy See Verified 08/13/18 11:31 Comments venom-honey bee Allergy See Verified 08/13/18 11:31 [bee venom (honey bee)] Comments Certification: Further, I certify that my clinical findings support that this patient is homebound (i.e. absences from home require considerable and taxing effort and are for medical reasons or gnosticist services or infrequently or short duration when for other reasons) because: Homebound Reason: Leaving home requires considerable and taxing effort due to condition Attestation: My signature below is to certify that this patient is under my care and that I, or nurse practitioner, or a physician's print shop assistant working with me, has a face-to -face encounter with this patient.
[2018-08-18 08:21] LABS: Calcium 8.7 mg/dL (8.6-10.3)
[2018-08-18] MEDS ORDERED: predniSONE 20 MG TABLET PO SCH (09:00)
[2018-08-18] MEDS: Aspirin Enteric Coated 81 MG Tablet PO SCH (09:52)
[2018-08-18] MEDS: clonazePAM 1 MG TABLET PO SCH (09:52)
[2018-08-18] MEDS: Gabapentin 400 MG CAPSULE PO SCH (09:52)
[2018-08-18] MEDS: levoFLOXacin 500 MG TABLET PO SCH (09:53)
[2018-08-18] MEDS ORDERED: 0.9 % Sodium Chloride 500 ML IVC PRN (11:45)
[2018-08-18 15:44] VITALS: BP 90/58
== END 2018-08-18 19:54 | disposition home or self-care (01) | DRG 720 ==
LOC: ICNU 19:26 → INTOOBSV 19:26 → SUATTDRO 19:26 → 2NNU 08-13 18:33 → 2NENU 08-15 21:57
PROVIDERS: ADMIT Student in an Organized Health Care Education/Training Program; ATTEND Internal Medicine